=== PATIENT | male | born 1940 | race Caucasian/White ===

== ENCOUNTER → 2018-07-28 | Outpatient (CLI) | payer MEDICARE | LOC: M.WC 12:48 | DX: S80.11XA Contusion of right lower leg, initial encounter (principal); L03.115 Cellulitis of right lower limb; E11.36 Type 2 diabetes mellitus with diabetic cataract; E11.40 Type 2 diabetes mellitus with diabetic neuropathy, unspecified; I87.2 Venous insufficiency (chronic) (peripheral); I48.91 Unspecified atrial fibrillation; L02.415 Cutaneous abscess of right lower limb; Z86.718 Personal history of other venous thrombosis and embolism; Z98.49 Cataract extraction status, unspecified eye; Z87.891 Personal history of nicotine dependence; W19.XXXA Unspecified fall, initial encounter; Y93.89 Activity, other specified; Y92.89 Other specified places as the place of occurrence of the external cause; Y99.8 Other external cause status ==

== ENCOUNTER → 2018-08-04 | Outpatient (CLI) | payer MEDICARE | LOC: M.WC 05:21 | DX: S80.11XD Contusion of right lower leg, subsequent encounter (principal); L03.115 Cellulitis of right lower limb; L02.415 Cutaneous abscess of right lower limb; E11.40 Type 2 diabetes mellitus with diabetic neuropathy, unspecified; E11.36 Type 2 diabetes mellitus with diabetic cataract; I48.91 Unspecified atrial fibrillation; Z87.891 Personal history of nicotine dependence; Z86.718 Personal history of other venous thrombosis and embolism; W19.XXXD Unspecified fall, subsequent encounter ==

== ENCOUNTER → 2018-08-18 | Outpatient (CLI) | payer MEDICARE | LOC: M.WC 08-11 13:00 | DX: S80.11XD Contusion of right lower leg, subsequent encounter (principal); L03.115 Cellulitis of right lower limb; L02.415 Cutaneous abscess of right lower limb; E11.40 Type 2 diabetes mellitus with diabetic neuropathy, unspecified; E11.36 Type 2 diabetes mellitus with diabetic cataract; I48.91 Unspecified atrial fibrillation; Z87.891 Personal history of nicotine dependence; Z86.718 Personal history of other venous thrombosis and embolism; W19.XXXD Unspecified fall, subsequent encounter ==

== ENCOUNTER → 2018-09-01 | Outpatient (CLI) | payer MEDICARE | LOC: M.WC 08-25 13:00 | DX: S80.11XD Contusion of right lower leg, subsequent encounter (principal); L89.893 Pressure ulcer of other site, stage 3; E11.40 Type 2 diabetes mellitus with diabetic neuropathy, unspecified; L02.415 Cutaneous abscess of right lower limb; E11.36 Type 2 diabetes mellitus with diabetic cataract; I48.91 Unspecified atrial fibrillation; Z87.891 Personal history of nicotine dependence; Z86.718 Personal history of other venous thrombosis and embolism; X58.XXXD Exposure to other specified factors, subsequent encounter ==

== ENCOUNTER → 2018-09-08 | Outpatient (CLI) | payer MEDICARE | LOC: M.WC 05:13 | DX: S80.11XD Contusion of right lower leg, subsequent encounter (principal); E11.40 Type 2 diabetes mellitus with diabetic neuropathy, unspecified; L03.115 Cellulitis of right lower limb; I48.91 Unspecified atrial fibrillation; G62.9 Polyneuropathy, unspecified; Z86.718 Personal history of other venous thrombosis and embolism; Z87.891 Personal history of nicotine dependence; X58.XXXD Exposure to other specified factors, subsequent encounter ==

== ENCOUNTER → 2018-09-15 | Outpatient (CLI) | payer MEDICARE | LOC: M.WC 05:10 | DX: S80.11XD Contusion of right lower leg, subsequent encounter (principal); L03.115 Cellulitis of right lower limb; L02.415 Cutaneous abscess of right lower limb; E11.40 Type 2 diabetes mellitus with diabetic neuropathy, unspecified; E11.36 Type 2 diabetes mellitus with diabetic cataract; I87.2 Venous insufficiency (chronic) (peripheral); I48.91 Unspecified atrial fibrillation; Z86.718 Personal history of other venous thrombosis and embolism; Z87.891 Personal history of nicotine dependence; W19.XXXD Unspecified fall, subsequent encounter ==

== ENCOUNTER → 2018-09-22 | Outpatient (CLI) | payer MEDICARE | LOC: M.WC 04:48 | DX: S80.11XD Contusion of right lower leg, subsequent encounter (principal); L02.415 Cutaneous abscess of right lower limb; L89.893 Pressure ulcer of other site, stage 3; E11.40 Type 2 diabetes mellitus with diabetic neuropathy, unspecified; E11.36 Type 2 diabetes mellitus with diabetic cataract; I87.2 Venous insufficiency (chronic) (peripheral); I48.91 Unspecified atrial fibrillation; Z86.718 Personal history of other venous thrombosis and embolism; Z87.891 Personal history of nicotine dependence; W19.XXXD Unspecified fall, subsequent encounter ==

== ENCOUNTER → 2018-09-29 | Outpatient (CLI) | payer MEDICARE | LOC: M.WC 04:59 | DX: S80.11XD Contusion of right lower leg, subsequent encounter (principal); L03.115 Cellulitis of right lower limb; E11.40 Type 2 diabetes mellitus with diabetic neuropathy, unspecified; E11.36 Type 2 diabetes mellitus with diabetic cataract; I48.91 Unspecified atrial fibrillation; Z87.891 Personal history of nicotine dependence; Z86.718 Personal history of other venous thrombosis and embolism; X58.XXXD Exposure to other specified factors, subsequent encounter ==

== ENCOUNTER → 2018-10-06 | Outpatient (CLI) | payer MEDICARE | LOC: M.WC 05:25 | DX: S80.11XD Contusion of right lower leg, subsequent encounter (principal); L02.415 Cutaneous abscess of right lower limb; L89.893 Pressure ulcer of other site, stage 3; E11.40 Type 2 diabetes mellitus with diabetic neuropathy, unspecified; E11.36 Type 2 diabetes mellitus with diabetic cataract; I48.91 Unspecified atrial fibrillation; Z86.718 Personal history of other venous thrombosis and embolism; Z87.891 Personal history of nicotine dependence; W19.XXXD Unspecified fall, subsequent encounter ==

== ENCOUNTER → 2018-10-12 | Outpatient (CLI) | payer MEDICARE | LOC: M.WC 04:57 | DX: S80.11XD Contusion of right lower leg, subsequent encounter (principal); L03.115 Cellulitis of right lower limb; L02.415 Cutaneous abscess of right lower limb; L89.893 Pressure ulcer of other site, stage 3; E11.36 Type 2 diabetes mellitus with diabetic cataract; E11.40 Type 2 diabetes mellitus with diabetic neuropathy, unspecified; I48.91 Unspecified atrial fibrillation; Z86.718 Personal history of other venous thrombosis and embolism; Z87.891 Personal history of nicotine dependence; W19.XXXD Unspecified fall, subsequent encounter ==